=== PATIENT | female | born 1990 | race Caucasian/White ===

== ENCOUNTER 2023-12-31 11:44 | Outpatient (RCR) | payer OTHER, SELFPAY ==
[2023-12-31 12:29] LABS: Beta HCG Quantitative 562.17 mIU/ML
== END 2024-03-28 23:59 | disposition home or self-care (01) ==
LOC: ANHLAB 11:44
PROVIDERS: Visit Provider Advanced Practice Midwife
DX: N91.2 Amenorrhea, unspecified (principal)
CPT/HCPCS: 36415; 84702

== ENCOUNTER 2024-01-27 13:15 | Emergency (ER) | payer OTHER, MEDICAID, SELFPAY ==
--- NOTE | 2024-01-27 13:16 | ED.URI ---
HPI - URI/Sore Throat General Chief Complaint: Upper Respiratory Infection Stated Complaint: FEVER/CONGESTION Time Seen by Provider: 01/27/24 13:16 Source: patient Mode of arrival: ambulatory Limitations: no limitations History of Present Illness HPI Narrative: Patient is a 33-year-old female that presents with 3 days of congestion and fever that worsened last night. Patient is approximately 8 weeks and was seen by OB and was given list of medication safe for . Was told to come be tested for COVID flu. Patient has history of tonsillectomy. Denies any sore throat, ear pain, nausea, vomiting, diarrhea. Has not taken anything for symptoms. Two kids at home have similar symptoms. Related Data Allergies Allergy/AdvReac Type Severity Reaction Status Date / Time No Known Allergies Allergy Mild Verified 01/27/24 13:24 Review of Systems Review of Systems: All systems reviewed & are unremarkable except as noted in HPI and below Constitutional: Constitutional: Denies body ache(s), Denies chills, Denies fatigue, Reports fever(s), Denies headache(s), Denies malaise and Denies weakness Eyes: Eyes: Denies blurry vision, Denies itchy eyes and Denies loss of vision ENT: Denies otalgia, Denies headache(s), Reports nasal congestion, Denies sinus pain and Denies sore throat Cardiovascular: Cardiovascular: Denies chest pain, Denies irregular heart rhythm and Denies dyspnea Respiratory: Respiratory: Denies cough and Denies dyspnea Gastrointestinal: Gastrointestinal: Denies abdominal pain, Denies diarrhea, Denies nausea and Denies vomiting Musculoskeletal: Musculoskeletal: Denies back pain, Denies myalgias and Denies arthralgias Integumentary/Breasts: Skin/Breast: Denies pruritus and Denies rash Neurologic: Denies headache(s), Denies loss of vision and Denies weakness Psychiatric: Psychiatric: Reports no additional psychiatric complaints Endocrine: Endocrine: Denies fatigue Allergic/Immunologic: Allergic/Immunologic: Denies itchy eyes PMFSH Comments At time of signature, agree with nursing past medical, surgical, social and family history. There is no relevant family history pertinent to the presenting complaint. Exam Const: General: cooperative, healthy appearing, comfortable, no acute distress and well nourished Nutritional Appearance: well nourished Orientation/consciousness: patient oriented x3 Limitations: no limitations HENMT: Head: normal to inspection, normocephalic and atraumatic Ears: hearing grossly normal bilaterally, external ears normal, TM's normal bilaterally, EAC's normal and no periauricular adenopathy Face/Nose/Sinus: Normal external nose present, Abnormal mucous membranes and turbinates present erythematous bilateral and diffuse, normal facial exam, sinuses nontender and face symmetric Face and sinus: normal facial exam, sinuses nontender and face symmetric Mouth: Yes Normal oral and palatal mucosa present, Yes lip normal, Yes tongue normal, Yes Normal salivary glands and ducts present, Yes oropharynx normal and Yes moist mucous membranes Teeth and gingiva: dentition normal Throat: posterior oropharynx normal, tonsils normal and uvula midline Eyes: General: appearance normal, both eyes and all related structures Alignment and Position: alignment normal and position normal Periorbital: periorbital findings normal Eyelids: eyelids normal Pupils: Equal, round and reactive pupils present Neck: Neck: normal visual inspection, full ROM, no lymphadenopathy and supple Chest: Chest palpation & inspection: normal inspection of the chest and normal palpation of entire chest wall Resp: Effort & Inspection: normal respiratory effort and able to speak in complete sentences Auscultation: clear to auscultation bilaterally, no crackles, no rales, no rhonchi and no wheezes Cardio: Rate: regular rate Rhythm: regular rhythm Heart sounds: S1 normal heart sound present and S2 normal heart sound present GI:
[2024-01-27 13:24] VITALS: BP 108/71; PULSE 87; RESP 16; TEMP 36.8; O2SAT 99
== END 2024-01-27 14:05 | disposition home or self-care (01) ==
PROVIDERS: Emergency Provider Nurse Practitioner Family; PCP Obstetrics & Gynecology
DX: O99.511 Diseases of the respiratory system complicating pregnancy, first trimester (principal); Z3A.08 8 weeks gestation of pregnancy; J06.9 Acute upper respiratory infection, unspecified; Z20.822 Contact with and (suspected) exposure to COVID-19
CPT/HCPCS: 87426; 87804; 99213; G0463

== ENCOUNTER 2024-07-14 13:05 | Emergency (ER) | payer OTHER, SELFPAY ==
[2024-07-14 13:18] VITALS: BP 117/75; PULSE 74; RESP 16; TEMP 37; O2SAT 98
--- NOTE | 2024-07-14 13:24 | ED.URI ---
HPI - URI/Sore Throat General Chief Complaint: Upper Respiratory Infection Stated Complaint: COUGH Time Seen by Provider: 07/14/24 13:25 Source: patient, RN notes reviewed and old records reviewed Mode of arrival: ambulatory Limitations: no limitations History of Present Illness HPI Narrative: 34 year old female presents to [facility] care with complaints of cough since Thursday which is especially bad at night. Patient reports that she has some sore throat also and there has been positive strep at home with 2 children.Patient reports that she has been taking some Claritin for her nasal drainage. Patient reports no fevers. Patient is and due to deliver September 05, 2024. MD elicited complaint: cough and sore throat Onset (ago): day(s) (5-6 days) Pain scale (0-10): 5 Description of mucous: clear Able to tolerate fluids by mouth: Yes Treatments prior to arrival: other (claritin) Related Data Allergies Allergy/AdvReac Type Severity Reaction Status Date / Time No Known Allergies Allergy Mild Verified 01/27/24 13:24 Review of Systems Review of Systems: CONSTITUTIONAL: Denies malaise, chills, sweats, or fever. EYES: Denies visual changes, redness, or discharge. ENT: Reports rhinorrhea, congestion, no sinus pain, no otalgia and positive for sore throat. CARDIOVASCULAR: Denies chest pain, palpitations, or edema. RESPIRATORY: Reports cough.? Denies dyspnea.states is worse at night GASTROINTESTINAL: Denies abdominal pain, nausea, vomiting, diarrhea SKIN: Denies rash or itching. MUSCULOSKELETAL: Denies myalgia. NEUROLOGIC: Denies headache. All systems reviewed & are unremarkable except as noted in HPI and below PMFSH Surgical History Surgical History History of tonsillectomy Social History Social History (Updated 07/14/24 @ 13:40 by Dinah Geiger NP) Smoking status: Never smoker Alcohol intake: former Alcohol use details: is Substance use type: does not use Comments At time of signature, agree with nursing past medical, surgical, social and family history. There is no relevant family history pertinent to the presenting complaint Exam Narrative: GENERAL: Well-appearing, well-nourished, and in no acute distress. HEAD: Normocephalic EYES: PERRLA, conjunctivae clear ENT: Nares clear, turbinates edematous and erythematous, clear discharge. Mucous membranes moist. TM pearly stone with dull light reflex bilaterally; no tragal tenderness. Oropharynx erythematous without lesions. Tonsils not present and throat without exudate, no drooling, no hoarseness, no trismus, uvula midline.post nasal drainage NECK: Supple. No lymphadenopathy CHEST: Clear to auscultation, breath sounds equal. No wheezing, rhonchi, rales, or stridor. No respiratory distress, speaks in full sentences.some cough,SAO2 98% on room air HEART: Regular rate and rhythm. No murmur heard. SKIN: Warm, dry, no rash. NEURO: Alert and oriented x3. PSYCH: Normal mood and affect Course Course Emergency Course: Patient is aware of diagnosis, understands and agrees to treatment plan.? Anticipatory guidance given.? Patient agrees to follow-up as directed and is aware of reasons to seek care at the emergency department. Portions of this record may have been created with voice recognition software Level of Care: Express Care Visit Vital Signs Vital signs: Vital Signs Temperature 37.0 C 07/14/24 13:18 Pulse Rate 74 07/14/24 13:18 Respiratory Rate 16 07/14/24 13:18 Blood Pressure 117/75 07/14/24 13:18 Pulse Oximetry 98 07/14/24 13:18 Temperature 37.0 C 07/14/24 13:18 Pulse Rate 74 07/14/24 13:18 Respiratory Rate 16 07/14/24 13:18 Blood Pressure 117/75 07/14/24 13:18 Pulse Oximetry 98 07/14/24 13:18 Reviewed MDM - URI/Sore Throat MDM Narrative Medical decision making narrative: Differential diagnosis consi
[2024-07-14 13:37] LABS: EDSTREPNEGPOS1 Negative (Negative)
== END 2024-07-14 13:48 | disposition home or self-care (01) ==
PROVIDERS: Emergency Provider Registered Nurse; PCP Advanced Practice Midwife
DX: O99.513 Diseases of the respiratory system complicating pregnancy, third trimester (principal); Z3A.33 33 weeks gestation of pregnancy; J02.9 Acute pharyngitis, unspecified; R05.9 Cough, unspecified
CPT/HCPCS: 87081; 87880; 99213; G0463

== ENCOUNTER 2024-08-19 10:02 | Outpatient (CLI) | payer OTHER, SELFPAY ==
[2024-08-19] VITALS (64 sets, daily range): BP systolic 67–129; BP diastolic 31–76; PULSE 72–140; O2SAT 92–100
[2024-08-19] MEDS: LACTATED RINGERS 1,000 ML 125 ML IV CONT ×2 (11:03→12:25)
[2024-08-19 11:05] LABS: Hematocrit 37.3 % (37.0-47.0); Hemoglobin 12.6 g/dL (12.0-15.0); Mean Corpuscular HGB Conc 33.8 g/dl (32-36); Mean Corpuscular Hemoglobin 31.8 pg (26-34); Mean Corpuscular Volume 94.2 fl (80-100); Mean Platelet Volume 12.2 fl (7.4-10.4); Platelet Count Result 183 k/mm3 (150-375); Red Blood Count 3.96 M/mm3 (4.2-5.4); Red Cell Distribution Width 12.7 % (11.5-14.5); White Blood Count 6.6 K/mm3 (4.5-10.0)
[2024-08-19] MEDS: TERBUTALINE SULFATE 1 MG/ML VIAL 0.25 MG SUB-Q (12:08)
[2024-08-19] MEDS: PHENYLEPHRINE 1,000 MCG/10 ML SYRINGE 1000 MCG (12:23)
[2024-08-19] MEDS: PHENYLEPHRINE 1,000 MCG/10 ML SYRINGE 100 MCG IV PUSH ×2 (12:28→12:42)
--- NOTE | 2024-08-19 13:03 | PM.IMHP ---
H&P: HPI History of Present Illness Date/Time: 08/19/24 12:03 Chief Complaint: breech presentation Narrative: Patient is a 34 year old who presents for external cephalic version. She has had persistent breech presentation. Her is otherwise uncomplicated. Risks and benefits of external cephalic version vs primary c section were discussed with patient and she would like to proceed with ECV. She denies strong contractions, leakage of fluid or vaginal bleeding. Denies nausea, vomiting, headaches, or vision changes. Review of Systems Review of Systems: All systems reviewed & are unremarkable except as noted in HPI and below PMFSH Surgical History Surgical History History of tonsillectomy Family History Family History (Updated 08/08/24 @ 12:40 by Gia Mcdonald RN) Other Patient denies significant medical history Social History Social History (Updated 07/14/24 @ 13:40 by Dinah Geiger NP) Smoking status: Never smoker Alcohol intake: former Alcohol use details: is Substance use: never Substance use type: does not use Spiritual care concerns: No Meds Home Medications and Allergies Home Medications Medication Instructions Recorded Confirmed Type ferrous sulfate 325 mg (65 mg 325 mg PO DAILY 08/08/24 08/08/24 History iron) tablet,delayed release prenat.vits,bob,[id number] 1 tablet 08/08/24 History Allergies Allergy/AdvReac Type Severity Reaction Status Date / Time No Known Allergies Allergy Mild Verified 01/27/24 13:24 Vital Signs Vital Signs - 24 hr 08/19/24 10:31 08/19/24 10:46 08/19/24 11:01 Pulse Rate 78 77 75 Blood Pressure 129/64 114/70 124/71 Pulse Oximetry 08/19/24 11:16 08/19/24 11:31 08/19/24 11:43 Pulse Rate 75 78 91 Blood Pressure 110/70 123/74 124/50 L Pulse Oximetry 93 08/19/24 11:43 08/19/24 11:44 08/19/24 11:46 Pulse Rate 81 78 Blood Pressure 119/71 112/62 Pulse Oximetry 92 08/19/24 11:48 08/19/24 11:51 08/19/24 11:53 Pulse Rate 88 78 Blood Pressure 122/66 127/69 Pulse Oximetry 100 99 08/19/24 11:54 08/19/24 11:57 08/19/24 11:58 Pulse Rate 127 H 80 Blood Pressure 120/67 115/69 Pulse Oximetry 100 08/19/24 11:59 08/19/24 12:01 08/19/24 12:02 Pulse Rate 84 83 102 H Blood Pressure 125/62 116/64 124/61 Pulse Oximetry 08/19/24 12:03 08/19/24 12:04 08/19/24 12:08 Pulse Rate 108 H Blood Pressure 106/32 L Pulse Oximetry 100 100 08/19/24 12:13 08/19/24 12:18 08/19/24 12:21 Pulse Rate 115 H Blood Pressure 87/56 L Pulse Oximetry 100 99 100 08/19/24 12:22 08/19/24 12:24 08/19/24 12:26 Pulse Rate 99 83 Blood Pressure 108/38 L 114/45 L Pulse Oximetry 100 08/19/24 12:28 08/19/24 12:29 08/19/24 12:31 Pulse Rate 99 99 88 Blood Pressure 89/43 L 98/47 L 98/58 L Pulse Oximetry 100 08/19/24 12:34 08/19/24 12:36 08/19/24 12:39 Pulse Rate 107 H 102 H 96 Blood Pressure 100/42 L 97/31 L 100/38 L Pulse Oximetry 100 08/19/24 12:41 08/19/24 12:44 08/19/24 12:46 Pulse Rate 97 95 Blood Pressure 99/36 L 102/43 L Pulse Oximetry 100 100 08/19/24 12:47 08/19/24 12:49 08/19/24 12:50 Pulse Rate 133 H 140 H 85 Blood Pressure 67/39 L 108/33 L 108/46 L Pulse Oximetry 08/19/24 12:51 08/19/24 12:54 08/19/24 12:56 Pulse Rate 95 80 Blood Pressure 115/61 114/52 L Pulse Oximetry 100 100 08/19/24 13:01 Pulse Rate 85 Blood Pressure 116/54 L Pulse Oximetry 100 Exam Const: General: comfortable and no acute distress HENMT: Mouth: Yes moist mucous membranes Resp: Effort & Inspection: normal respiratory effort Cardio: Rate: regular rate Psych: Mental Status: mental status grossly normal H&P: Results Labs Labs: Short CBC 08/19/24 Range/Units 10:58 WBC 6.6 (4.5-10.0) K/mm3 Hgb 12.6 (12.0-15.0) g/dL Hct 37.3 (37.0-47.0) % Plt Count 183 (150-375) k/mm3 Imaging US - abdomen: My impression: garry breech presentation, head upper left quadrants Assessment and Plan Assessment and plan (1) Breech presentation: Code(s): O32.1XX0 - Maternal care for breech presentation, not applicable or unspecified Status: Acute Assessment and Plan: - garry breech presentation confirmed on admission - risks and benefits of external cephalic version vs primary c section discussed and patient would like to proceed with ECV
--- NOTE | 2024-08-19 13:21 | P.OP_ITS ---
Procedure Note - Detailed Date of Procedure 08/19/24 Pre-op Diagnosis breech presentation Post-op Diagnosis Same Procedure Performed external cephalic version Surgeon Tyler Saab MD Financial Reporting Specialist Dinorah Gonzalez CNM Anesthesia Epidural Findings garry breech presentation at beginning of procedure, head maternal RUQ; successfully converted to vertex presentation at end of procedure Description of Procedure Patient counseled on the risks, benefits, and alternatives of the procedure.? heart rate tracing reactive prior to the procedure. Patient received 0.25mg terbutaline subQ five minutes prior to the procedure. Epidural anesthesia was induced and adequate. After applying lubricant to the patient's abdomen, external cephalic version was performed in the normal fashion. FHR was observed after the first forward roll, and was found to be bradycardic. Intrauterine resuscitation, fluid bolus, and phenylephrine administration for hypotension was performed and FHR recovered to normal baseline. The version was then continued. The baby was successfully rotated to cephalic presentation, confirmed by ultrasond.?FHR was observed with a bedside ultrasound intermittently throughout the procedure and was noted to be normal at the end of the procedure The patient tolerated the procedure. Will continue external monitoring for 2 hour and then D/C home if FHR tracing is reactive Condition Stable Disposition Same day
== END 2024-08-19 15:32 | disposition home or self-care (01) ==
LOC: ANHOBOP 10:09 → ANHLDR 10:09 → ANHOBOP 12:29
PROVIDERS: Visit Provider Obstetrics & Gynecology
DX: O32.1XX0 Maternal care for breech presentation, not applicable or unspecified (principal); Z3A.00 Weeks of gestation of pregnancy not specified
CPT/HCPCS: 36415; 59412; 85027; J2371; J2795; J3105; J7120

== ENCOUNTER 2024-08-20 17:20 | Outpatient (CLI) | payer OTHER, SELFPAY ==
--- NOTE | 2024-08-20 17:49 | PC.NURSE ---
Patient presents to labor with c/o of increase in swelling and more swelling in her R ankle. R ankle is slightly more swollen than her left, no calf tenderness noted, no reddness noted. Good pedal pulse noted. Negative caren sign. Patient was here yesterday for a external version and did receive and epdiral and IV fluids. Chel Gonzalez notified of amd c/o and BP's, ok to dc home after I check with Dr Groves. Dr Groves notified of the the above c/o and assessment. OK to dc home.
[2024-08-20 18:05] VITALS: BMI 27.6
--- NOTE | 2024-08-20 18:05 | PC.NURSE ---
Discharge instructions reveiwed, patient incourged to return to labor if she has and changes in swelling or onset of calf pain.
== END 2024-08-20 18:05 | disposition home or self-care (01) ==
LOC: ANHOBOP 18:13 → ANHOBPP 18:33
PROVIDERS: Visit Provider Obstetrics & Gynecology
DX: O13.9 Gestational [pregnancy-induced] hypertension without significant proteinuria, unspecified trimester (principal); Z3A.00 Weeks of gestation of pregnancy not specified
CPT/HCPCS: 59025; 99199

== ENCOUNTER 2024-08-31 04:58 | Inpatient (IN) | payer OTHER, MEDICAID, SELFPAY ==
[2024-08-31] VITALS (125 sets, daily range): BP systolic 92–143; BP diastolic 40–98; PULSE 73–128; RESP 16; TEMP 36.8–37.9; O2SAT 93–100; BMI 27.7
[2024-08-31 05:51] LABS: Basophils Percent Auto 0.5 % (0.2-1.2); Eosinophils Absolute Auto 0.1 K/mm3 (0-0.3); Eosinophils Percent Auto 1.7 % (0-4.4); Hematocrit 41.2 % (37.0-47.0); Hemoglobin 13.7 g/dL (12.0-15.0); Immature Granulocyte Absolute 0.02 K/mm3 (0.00-0.031); Immature Granulocyte Percent A 0.3 % (0-0.5); Lymphocytes Absolute Auto 0.89 K/mm3 (0.9-3.2); Lymphocytes Percent Auto 13.9 % (18.3-44.2); Mean Corpuscular HGB Conc 33.3 g/dl (32-36); Mean Corpuscular Hemoglobin 31.6 pg (26-34); Mean Corpuscular Volume 94.9 fl (80-100); Mean Platelet Volume 12.5 fl (7.4-10.4); Monocytes Absolute Auto 0.6 K/mm3 (0.1-0.6); Monocytes Percent Auto 9.2 % (2.6-8.5); Neutrophils Absolute Auto 4.8 K/mm3 (1.3-6.7); Neutrophils Percent Auto 74.4 % (45.5-73.1); Platelet Count Result 196 k/mm3 (150-375); Red Blood Count 4.34 M/mm3 (4.2-5.4); Red Cell Distribution Width 12.3 % (11.5-14.5); White Blood Count 6.4 K/mm3 (4.5-10.0)
[2024-08-31 06:36] LABS: HIV 1/2 Ab P24 Ag Result Negative (Negative)
[2024-08-31] MEDS: OXYTOCIN 30 UNITS/NS 500 ML 30 UNITS/500 ML BAG IV CONT (06:37)
[2024-08-31] MEDS: LACTATED RINGERS 1,000 ML 125 ML IV CONT ×2 (06:38→08:59)
[2024-08-31 07:17] LABS: Rapid Plasma Reagin Non-Reactive (NonReactive)
--- NOTE | 2024-08-31 07:40 | WPDOBADMIT ---
Obstetrics - Admit Note Admission Note: record reviewed. No pertinent additions to the history and/or any subsequent changes in the physical findings that are not consistent with the expected course of the were found. Additions to the history and/or subsequent changes in the physical findings follow. IOL, vertex by bedside US, SVE /-2 AROM small amount of clear, odorless fluid, anticipate vaginal delivery
--- NOTE | 2024-08-31 11:33 | WPDANESEPPF ---
Anes - Initial Pre Proc Eval Date/Time: 08/31/24 11:33 Surgeon: Loco Groves MD Pre Op Diagnosis: iol Patient Data Age: 34 Gender: F Height: 1.68 m Weight: 78 kg Last Vital Signs Temp 37.2 C 08/31/24 09:13 Pulse 87 08/31/24 11:31 BP 138/60 08/31/24 11:31 Pulse Ox 100 08/31/24 10:59 O2 Del Method Room Air 08/31/24 05:45 Allergies Allergy/AdvReac Type Severity Reaction Status Date / Time No Known Allergies Allergy Mild Verified 01/27/24 13:24 Home Medications Medication Instructions Recorded Confirmed Type ferrous sulfate 325 mg (65 mg 45 mg PO DAILY 08/08/24 08/31/24 History iron) tablet,delayed release prenat.vits,bob,yic-zldc-crslw 1 tablet 08/08/24 History Daily Probiotic 08/31/24 History Laboratory Tests 08/31/24 05:21 WBC 6.4 K/mm3 (4.5-10.0) RBC 4.34 M/mm3 (4.2-5.4) Hgb 13.7 g/dL (12.0-15.0) Hct 41.2 % (37.0-47.0) MCV 94.9 fl (80-100) MCH 31.6 pg (26-34) MCHC 33.3 g/dl (32-36) RDW 12.3 % (11.5-14.5) Plt Count 196 k/mm3 (150-375) MPV 12.5 H fl (7.4-10.4) Immature Gran % (Auto) 0.3 % (0-0.5) Neut % (Auto) 74.4 H % (45.5-73.1) Lymph % (Auto) 13.9 L % (18.3-44.2) [place] % (Auto) 9.2 H % (2.6-8.5) Eos % (Auto) 1.7 % (0-4.4) Baso % (Auto) 0.5 % (0.2-1.2) Lymph # (Auto) 0.89 L K/mm3 (0.9-3.2) [place] # (Auto) 0.6 K/mm3 (0.1-0.6) Eos # (Auto) 0.1 K/mm3 (0-0.3) Baso # (Auto) 0.0 K/mm3 (0.0-0.1) Abs Immat Gran (auto) 0.02 K/mm3 (0.00-0.031) Absolute Neuts (auto) 4.8 K/mm3 (1.3-6.7) Absolute Nucleated RBC 0.000 K/mm3 (0.0-0.012) Nucleated RBC % 0.0 % (0.0-0.2) RPR Non-reactive (NonReactive) HIV 1&2 Ab/P24 Ag 4thGn Negative (Negative) Blood Type B Positive Antibody Screen Negative Patient hx anesthesia problems: none Family hx anesthesia problems: none Results Review: All pre-operative results and documents have been reviewed as part of the pre-operative evaluation. [facility] Surgical History Surgical History History of tonsillectomy Family History Family History Other Patient denies significant medical history Social History Social History Smoking status: Former smoker Tobacco type: cigarettes Second hand tobacco smoke exposure: Yes Alcohol intake: former Alcohol use details: is Substance use: never Substance use type: does not use Do You Feel Safe in your Home?: Yes Lack of Transportation: No Lack of Food: Never True Current Housing: I Have Housing Concerned About Future Housing: No Difficulty Paying Gas/Electric Bills: No Difficulty Paying for Meds: No Currently Unemployed: No Education: Trade/Vocational Certificate Difficulty w/ Childcare or Family Care: No Spiritual care concerns: No Anes - Eval Final PreProcedure Day of Procedure 08/31/24 11:33 Patient weight: overweight Heart: regular rate and rhythm Lungs: clear to auscultation Neurological: alert and oriented Last oral intake: >/= 8 hours ASA classification: II Emergent: no Anesthetic plan: proceed Anesthesia type and monitoring: regional epidural and standard monitoring Results Review: All pre-operative results and documents have been reviewed as part of the pre-operative evaluation. Informed Consent: The patient's anesthetic plan and its attendant risks and benefits were discussed with the patient/family/POA. Questions were solicited and answers provided to the satisfaction of the patient/family/POA.
--- NOTE | 2024-08-31 11:39 | PM.OBPRVD ---
OB - Vaginal Delivery Note Procedure Delivery date: 08/31/24 Events: Other (ECV at 37 weeks) Induction method: AROM and Per Pitocin Protocol Delivery monitor: External FHT and External Uterine Route of delivery: Episiotomy description: Right Mediolateral Delivery repair: vicryl Specimen: Yes Quantitative Blood Loss (ml): 150 Anesthesia type: Epidural Disposition: Floor Complications: Other complications Narrative: head delivered and slowly delivered anterior shoulder did not deliver, cecille and internally rotated with suprapubic pressure to KEKE, RML and posterior arm delivered 70 sec total, baby stable condition moving all extremities without difficulty, pt stable
[2024-08-31] MEDS: OXYTOCIN 30 UNITS/NS 500 ML 30 UNITS/500 ML BAG 125 UNITS IV CONT (12:07)
[2024-08-31] MEDS: WITCH HAZEL 40 PADS 1 PAD TOPICAL (14:31)
[2024-08-31] MEDS: BENZOCAINE 20% AER SPR (*SP) 56 GM CAN 1 SPRAY TOPICAL (14:32)
[2024-08-31] MEDS: DIBUCAINE 1% OINTMENT 30 GM TUBE 1 APPLIC TOPICAL (14:32)
[2024-08-31] MEDS: IBUPROFEN 600 MG TABLET PO (16:21)
--- NOTE | 2024-08-31 16:30 | OBPPTRN ---
Patient transferred to post room #286 via wheelchair. Support person present. Oriented to unit, room, information board, rooming in, admission packet and security measures. Patient verbalizes understanding.
--- NOTE | 2024-08-31 16:45 | PC.NURSE ---
Observed mother attempting to latch to the [left] breast in [football] position. [was not] able to maintain an appropriate latch. He would attempt to latch but there was no suckling or maintaining of the latch. Encouraged mother to keep infant skin to skin and try again when he gives feeding cues or within an hour. Reviewed that we will count his previous 5 minute feeding on the other breast that she did independently. Mother voiced understanding of the education shared, to call for assistance if the does not latch or if there is discomfort with . Reported to the Primary RN.?
[2024-08-31] MEDS: ACETAMINOPHEN 325 MG TABLET 650 MG PO (18:57)
[2024-09-01] MEDS: IBUPROFEN 600 MG TABLET PO ×3 (01:36→17:42)
[2024-09-01] MEDS: ACETAMINOPHEN 325 MG TABLET 650 MG PO ×3 (01:36→17:42)
[2024-09-01 05:08] LABS: Hematocrit 31.7 % (37.0-47.0); Hemoglobin 10.7 g/dL (12.0-15.0)
--- NOTE | 2024-09-01 07:30 | PC.NURSE ---
[id number] Introductions made, name written on patient board. Consulted with patient to assess needs related to . Discussed with mother her successes, concerns and any questions she has. Mother was shown hand expression and given the Hand Expression handout, as she had been expressing colostrum but only expressing at the nipple and was experiencing soreness with this act. We reviewed working with the , supporting breast, protecting her nipples with an optimal deep latch, good positioning, and good hand washing. Encouraged understanding the benefits of skin to skin, responding to feeding cues, frequencies of feeding 8-12 times in 24 hours (approximately 2-3 hours), duration of feedings, milk production, intake/output feeding sheet and signs of adequate intake encouraging swallowing at the breast. Reviewed positioning and alignment, supporting breast, off-centered (asymmetrical latch) and leading with the chin with big, open, wide gape. Infant latched optimally to the right breast in cross cradle position. Education given to the mother of how to visualize the suckling (with good rocking jaw motion) swallows (dropping of the lower jaw) and how to listen for drinking at the breast (the ka sound). The infant was able to maintain latch without discomfort to mother. Nipple care reviewed with optimal latch, good positioning and using clean hands when touching her breast. Resources used to facilitate learning were used from the visual handouts and the mom and baby guide. Mother voiced understanding of the education shared, to call for assistance if the does not latch or if there is discomfort with . Reported to the Primary RN.
[2024-09-01 08:15] VITALS: BP 124/69; PULSE 78; RESP 16; TEMP 36.5; O2SAT 96
--- NOTE | 2024-09-01 08:35 | PM.OBPNVD ---
OB - PN: Subj Subjective Date/time seen: 09/01/24 08:35 Patient comments: no complaints, pain well controlled, incisional pain, tolerating diet and flatus present OB - PN: Obj Data Labs 09/01/24 04:36 Labs: Laboratory Results - last 24 hr 09/01/24 04:36 Hgb 10.7 L D Hct 31.7 L OB - PN A/P Plan day: 1 Plan: routine care Comments: No problems, routine care Time Spent With Patient Time: Total time spent is greater than 50% in coordination of care (as documented) at patient's floor/unit and/or counseling patient: Exam Const: General: comfortable, no acute distress and alert Resp: Effort & Inspection: normal respiratory effort Auscultation: no crackles, no rales and no rhonchi Cardio: Rate: regular rate Heart sounds: no click, no murmurs and no rubs GI: Inspection: non-distended GI Palp: No Tenderness to palpation present (GI) Auscultation: normal bowel sounds Other: Incision - CDI Extrem: General: normal to inspection, no pedal edema and no calf tenderness
--- NOTE | 2024-09-01 08:36 | P.DS_ITS ---
DS: Admitting Diagnosis Discharge Date 09/01/24 Admitting Diagnosis term DS: Discharge Diagnosis Discharge Diagnosis (1) Term delivered: Code(s): O80 - Encounter for full-term uncomplicated delivery Status: Acute OB - DS: Summary OB Procedures : None OB Procedures Intrapartum: Spontaneous Vag Delivery OB Procedures: : None Peripartum Data Episiotomy description: Right Mediolateral Time Spent with Patient Time attestation: Total time spent providing and/or coordinating discharge services: DS: Data Data Completed and Pending Pending studies at discharge: Pending at discharge 08/31/24 14:25 Surgical [PTH] Routine Labs on day of discharge: Labs from last 24 hours 09/01/24 04:36 Hgb 10.7 L D Hct 31.7 L Discharge Plan Discharge Consulting providers: Dinorah Gonzalez; Tyler Saab Discharging Clinician: Loco Groves Patient Disposition: Home, Self-Care Activity: pelvic rest Diet: regular Patient Instructions: Antibiotic Form Stand Alone Forms: General Discharge Information Follow-up/Referrals: Loco Groves MD [Physician] - Discharge Medications: Continued ferrous sulfate 325 mg (65 mg iron) Tablet,Delayed Release (Dr/Ec) 45 mg PO DAILY #2 Tablet 1 tablet PO DAILY Daily Probiotic 1 tablet PO DAILY Date of admission: 08/31/24 04:58 Primary Care Provider: PHYSICIAN,LITURGICAL MUSIC DIRECTOR Admitting Provider: Loco Groves Attending physician on admission: Loco Groves Condition: Stable
[2024-09-01] MEDS: DOCUSATE SODIUM 100 MG CAPSULE PO ×2 (08:44→17:42)
--- NOTE | 2024-09-01 15:26 | PC.NURSE ---
1350. Breast pump provided due to low blood sugar and needing to supplement. Mom preferred to pump and see if she could get some EBM to give infant over formula. Mom pumped around 3ml. Moms nipples measured at 18mm bilaterally. 24mm flange recommended for pump use. Instructions given on cleaning, care, usage, that there should be no pain, pumping schedule for milk production, collection, and storage of human milk. Patient was assessed for correct placement & to pump for comfort and nipple stretching/stimulation for adequate milk production every 3 hours (8 times in 24 hours) 1-2 times at night. Parents are encouraged to record the pumping schedule on the feeding sheet.?Mother voiced understanding of the education shared along with mom/baby guide and the pump measurement, flange fit handout for additional resource information. Reported to the Primary RN.
--- NOTE | 2024-09-01 18:41 | WPDANLDPN2 ---
Anes-Prog Note L&D Date/Time: 09/01/24 18:41 Comfortable throughout: labor and delivery Neuraxial method: epidural Epidural/Spinal procedure site: clean & non-tender Neuro status: Neuro function grossly intact. Cardiovascular status: normal Respiratory status: normal Airway patency: baseline Mental status: baseline Post-Op hydration status: normal Vital Signs: Last Vital Signs Temp 36.5 C 09/01/24 08:15 Pulse 78 09/01/24 08:15 Resp 16 09/01/24 08:15 BP 124/69 09/01/24 08:15 Pulse Ox 96 09/01/24 08:15 O2 Del Method Room Air 09/01/24 07:10 Pain score (VAS): 11/11 Post-procedural complaints: none Patient feedback: Patient satisfied with anesthetic care.
[2024-09-01 19:54] VITALS: BP 121/66; PULSE 67; RESP 18; TEMP 37.1; O2SAT 99
[2024-09-02] MEDS: IBUPROFEN 600 MG TABLET PO (01:58)
[2024-09-02] MEDS: ACETAMINOPHEN 325 MG TABLET 650 MG PO (01:59)
[2024-09-02] MEDS: BENZOCAINE 20% AER SPR (*SP) 56 GM CAN 1 SPRAY TOPICAL (02:14)
[2024-09-02 07:45] VITALS: BP 111/72; PULSE 65; RESP 18; TEMP 36.9; O2SAT 99
--- NOTE | 2024-09-02 07:57 | PM.OBPNVD ---
OB - PN: Subj Subjective Date/time seen: 09/02/24 07:57 Interval history: pp day 2 breast/bottle desires d/c home OB - PN: Obj Data Labs 09/01/24 04:36 OB - PN A/P Plan day: 2 Plan: routine care and discharge home Time Spent With Patient Time: Total time spent is greater than 50% in coordination of care (as documented) at patient's floor/unit and/or counseling patient: Review of Systems Review of Systems: All systems reviewed & are unremarkable except as noted in HPI and below Exam Const: General: cooperative and healthy appearing Resp: Effort & Inspection: normal respiratory effort Cardio: Rate: regular rate Psych: Appearance: grossly normal
--- NOTE | 2024-09-02 07:58 | PM.OBDSVD ---
DS: Admitting Diagnosis Discharge Date 09/02/24 Admitting Diagnosis IOL OB - DS: Summary OB Procedures : None OB Procedures Intrapartum: Spontaneous Vag Delivery OB Procedures: : None Peripartum Data Episiotomy description: Right Mediolateral Time Spent with Patient Time attestation: Total time spent providing and/or coordinating discharge services: DS: Data Data Completed and Pending Pending studies at discharge: Pending at discharge 08/31/24 14:25 Surgical [PTH] Routine Discharge Plan Discharge Attending physician on discharge: Loco Groves Consulting providers: Dinorah Gonzalez; Tyler Saab Discharging Clinician: Dinorah Gonzalez Anticipated Discharge Date/Time: 09/02/24 07:58 Patient Disposition: Home, Self-Care Activity: pelvic rest Diet: regular Patient Instructions: Antibiotic Form Stand Alone Forms: General Discharge Information Follow-up/Referrals: Loco Groves MD [Physician] - Discharge Medications: Continued ferrous sulfate 325 mg (65 mg iron) Tablet,Delayed Release (Dr/Ec) 45 mg PO DAILY #2 Tablet 1 tablet PO DAILY Daily Probiotic 1 tablet PO DAILY Date of admission: 08/31/24 04:58 Primary Care Provider: PHYSICIAN,[employer] ENGINEER Admitting Provider: Loco Groves Attending physician on admission: Loco Groves Condition: Stable
--- NOTE | 2024-09-02 09:00 | PC.NURSE ---
Mother verbalizes she is able to independently latch with appropriate positioning and alignment. She denies any nipple discomfort and is responsively . Infant is currently meeting outcomes for weight, output, jaundice, blood sugar and feeding frequencies of 8-12 times in 24 hours. Mother declines any additional assistance or education at this time. Mother is encouraged to call for assistance if her infant doesn?t latch, pain with latching, questions or concerns. Mother voiced understanding of information shared along with the mom/baby guide for an additional resource. Reported to the Primary RN.
== END 2024-09-02 09:18 | disposition home or self-care (01) | DRG 807 ==
LOC: ANHLDR 05:49 → ANHOB2 16:54
PROVIDERS: Advanced Practice Midwife; Admitting Provider Obstetrics & Gynecology; Visit Provider Obstetrics & Gynecology
DX: O66.0 Obstructed labor due to shoulder dystocia (principal); Z37.0 Single live birth; Z3A.39 39 weeks gestation of pregnancy
CPT/HCPCS: 36415; 85014; 85018; 85025; 86592; 86703; 86850; 86900; 86901; 88307; A9270; G0432; J2590; J2795; J7120

== ENCOUNTER 2025-05-14 16:07 | Emergency (ER) | payer OTHER, SELFPAY ==
[2025-05-14 16:15] VITALS: BP 107/74; PULSE 76; RESP 16; TEMP 36.6; O2SAT 99
[2025-05-14 16:24] LABS: EDUAAPPEAR Clear; EDUABILI Negative (Negative); EDUABLOOD Negative (Negative); EDUACOLOR1 Yellow; EDUAGLUCOSE Negative (Negative); EDUAKETONE Negative (Negative); EDUALEUKO 1+ (Negative); EDUANITRATE Negative (Negative); EDUAPH 5.5; EDUAPROTEIN Negative (Negative); EDUASPGRAVITY 1.010; EDUAUROBILI 0.2
--- NOTE | 2025-05-14 16:35 | ED.FEMALEGU ---
HPI - Female Genitourinary General Chief complaint: Urogenital-Female Stated complaint: UTI SYMPTOMS Time Seen by Provider: 05/14/25 16:18 Source: patient and RN notes reviewed Mode of arrival: ambulatory Limitations: no limitations History of Present Illness HPI Narrative: Patient presents today complaining of a 2 day history of mild dysuria, cloudy urine, bilateral mid back pain. She currently rates her back pain 3/10, which increases with movement. She has been taking ibuprofen with some relief. Denies injury or trauma for back. Denies radiation of the pain or loss of or bladder control. She has history significant for multiple episodes of pyelonephritis and cystitis, starting when she was young. Patient is currently Related Data Home Medications ?Medication ?Instructions ?Recorded ?Confirmed ?Last Taken ?Type ferrous sulfate 325 mg (65 mg 45 mg PO DAILY 08/08/24 08/31/24 08/30/24 10:00 History iron) tablet,delayed release prenat.vits,bob,[id number] 1 tablet PO DAILY 08/08/24 05/14/25 08/30/24 10:00 History Daily Probiotic 1 tablet PO DAILY 08/31/24 05/14/25 08/30/24 10:00 History Allergies Allergy/AdvReac Type Severity Reaction Status Date / Time No Known Allergies Allergy Mild Verified 05/14/25 16:15 [facility] Surgical History Surgical History History of tonsillectomy Family History Family History Other Patient denies significant medical history Social History Social History Smoking status: Former smoker Tobacco type: cigarettes Second hand tobacco smoke exposure: Yes Alcohol intake: former Alcohol use details: is Substance use: never Substance use type: does not use Do You Feel Safe in your Home?: Yes Lack of Transportation: No Lack of Food: Never True Current Housing: I Have Housing Concerned About Future Housing: No Difficulty Paying Gas/Electric Bills: No Difficulty Paying for Meds: No Currently Unemployed: No Education: Trade/Vocational Certificate Difficulty w/ Childcare or Family Care: No Spiritual care concerns: No Comments At time of signature, I have reviewed and agree with nursing past medical, surgical, social and family history unless otherwise noted. Please see nursing chart for further information. There is no relevant family history pertinent to the presenting complaint Exam Narrative: GENERAL: Well-appearing, well-nourished, and in no acute distress. HEAD: Normocephalic, atraumatic. EYES: EOMI. No redness or drainage. Conjunctivae normal. ENT: Mucous membranes pink and moist. NECK: Normal AROM. CHEST: No respiratory distress. Clear to auscultation. HEART: Regular rate and rhythm. No murmur appreciated. ABDOMEN: Soft, nondistended, normal active bowel sounds. + suprapubic tenderness, bilateral CVAT MUSCULOSKELETAL: No bony tenderness. EXTREMITIES: Normal range of motion. No edema. SKIN: Warm, dry, no rash. Capillary refill normal. Normal skin turgor. NEURO: No focal deficits. Alert and oriented x3. Gait steady. Distal sensation intact. Saddle sensation intact. Lower extremity strength normal. PSYCH: Normal affect. No signs of depression or anxiety. Course Course Level of Care: Express Care Visit Vital Signs Vital signs: Vital Signs Temperature 97.9 F 05/14/25 16:15 Pulse Rate 76 05/14/25 16:15 Respiratory Rate 16 05/14/25 16:15 Blood Pressure 107/74 05/14/25 16:15 Pulse Oximetry 99 05/14/25 16:15 Temperature 97.9 F 05/14/25 16:15 Pulse Rate 76 05/14/25 16:15 Respiratory Rate 16 05/14/25 16:15 Blood Pressure 107/74 05/14/25 16:15 Pulse Oximetry 99 05/14/25 16:15 Reviewed MDM - Female Genitourinary MDM Narrative Medical decision making narrative: 34-year-old female patient presents with a 2 day history of bilateral mid back pain, dysuria, cloudy urine. Exam shows suprapubic tenderness and CVA tenderness. Neurovascularly intact. Urinalysis shows 1+ leukocyte esterase. This along with patient's HPI and exam are consistent with UTI. She will be started on a course of Keflex. This is safe with breast-feeding. Culture pending. Vital signs stable. Strict ED precautions given. Differential Diagnosis Differential diagnosis: Likely urinary tract infection, cystitis and other (Pyelonephritis) Lab Data Attestation: I reviewed the patient's lab results. Labs: Lab Results 05/14/25 Range/Units 16:22 POC Urine Color Yellow POC Urine Clarity Clear POC Urine pH 5.5 POC Ur Specif [place] 1.010 POC Urine Protein Negative (Negative) POC Ur Glucose (UA) Negative (Negative) POC Urine Ketones Negative (Negative) POC Urine Blood Negative (Negative) POC Urine Nitrite Negative (Negative) POC Urine Bilirubin Negative (Negative) POC Urine Urobilinogen 0.2 POC U Leukocyte Esteras 1+ (Negative) Critical Care Time Critical Care Time Critical Care Time: No Discharge Plan Discharge Clinical Impression: Urinary tract infection Qualifiers: Urinary tract infection type: acute cystitis Hematuria presence: without hematuria Qualified Code(s): N30.00 - Acute cystitis without hematuria Patient Disposition: Home Condition: Stable Instructions: Antibiotic Form, Urinary Tract Infection in Women (ED) Additional Instructions: Your urine shows infection today. Take Keflex as prescribed until gone. Your urine will be sent of for a culture to identify what type of bacteria is causing your infection. If the culture shows that your medication will not get rid of your infection, you will be notified and a new antibiotic will be called in for you. If your symptoms worsen to include fever, sweats, chills, nausea, vomiting, severe abdominal or back pain, please go to the ER for further evaluation. Patient Language: Divehi Prescriptions: New cephalexin 500 mg capsule 500 mg PO BID 7 Days Qty: 14 0RF No Action ferrous sulfate 325 mg (65 mg iron) Tablet,Delayed Release (Dr/Ec) 45 mg PO DAILY prenat.vits,bbo,[id number] Tablet 1 tablet PO DAILY Daily Probiotic 1 tablet PO DAILY Follow-up/Referrals: Dinorah Gonzalez CNM [Primary Care Provider] - Time of Disposition: 16:33
== END 2025-05-14 16:37 | disposition home or self-care (01) ==
PROVIDERS: Emergency Provider Nurse Practitioner; PCP Advanced Practice Midwife
DX: N30.00 Acute cystitis without hematuria (principal); Z87.891 Personal history of nicotine dependence
CPT/HCPCS: 81003; 87086; 99213; G0463